=== PATIENT | male | born 1990 | race Caucasian/White ===

== ENCOUNTER 2023-11-20 21:39 | Emergency (ER) | payer MEDICAID, OTHER ==
[2023-11-20] MEDS: Fluorescein 1 MG Ophth Strip EYEBOTH ONE (23:20)
[2023-11-20] MEDS: Tetracaine HCl/PF 0.5% 4 ML Bottle EYEBOTH ONE (23:20)
[2023-11-20] MEDS: Sulfacetamide 10% Ophth Soln 15 ML Bottle EYEBOTH ONE (23:33)
== END 2023-11-20 23:37 | disposition home or self-care (01) ==
LOC: DL.ED 21:39
DX: H16.133 Photokeratitis, bilateral (principal); Z79.899 Other long term (current) drug therapy
CPT/HCPCS: 99282; 99283; A9270-GY; J3490